=== PATIENT | female | born 1965 | race African-American/Black ===

== ENCOUNTER 2022-10-26 06:24 | Emergency (ER) | payer MEDICAID ==
[~2022-10-26] VITALS: Ht 177.8 cm; Wt 82.0 kg
[2022-10-26] MEDS ORDERED: ONDANSETRON HCL 4MG/2ML INJ IV STA (06:44)
[2022-10-26] MEDS ORDERED: SODIUM CHLORIDE 0.9% 1,000 ML IV ONE (06:45)
[2022-10-26 08:00] VITALS: BP 144/85
[2022-10-26 08:01] LABS: CHLORIDE 109 mEq/L (98-107)
[2022-10-26 08:02] LABS: BASOPHILS % 0.8 % (0.0-2.0); HEMOGLOBIN. 12.8 g/dL (12.0-16.0); LYMPHOCYTES % 25.8 % (20.0-50.0); MEAN CORPUSCULAR VOLUME 80.7 fL (81.0-99.0); MEAN PLATELET VOLUME 8.1 fl (7.4-10.4); MONOCYTES % 7.5 % (2.0-8.0); NEUTROPHILS % 63.9 % (40.0-76.0); PLATELET 255 x1000/uL (130-400); RED BLOOD CELL COUNT 4.59 mill/uL (4.2-5.4)
[2022-10-26] MEDS ORDERED: ONDA4TAB50 PO (09:26)
== END 2022-10-26 09:59 | disposition home or self-care (01) ==
LOC: ER 06:24
DX: R42 Dizziness and giddiness (principal); R03.0 Elevated blood-pressure reading, without diagnosis of hypertension; I44.0 Atrioventricular block, first degree
CPT/HCPCS: 36415; 71045; 80053; 83880; 84484; 85025; 93005; 96360; 96361; 99285; J7030

== ENCOUNTER 2025-10-23 08:45 | Emergency (ER) | payer MEDICAID ==
[~2025-10-23] VITALS: Ht 177.8 cm; Wt 95.0 kg
[~2025-10-23 08:45] MED LIST: ONDA4TAB50 PO
[2025-10-23 08:51] VITALS: O2SAT 100
[2025-10-23] MEDS: CLONIDINE 0.2MG TABLET PO ONE (10:10)
[2025-10-23 10:39] VITALS: TEMP 36.7
[2025-10-23] MEDS: HYDROCHLOROTHIAZIDE 25MG TABLET PO SCH (10:44)
[2025-10-23 11:29] VITALS: BP 130/90; PULSE 70; RESP 15; O2SAT 100
[2025-10-23] MEDS ORDERED: HYDR12.54 MT (11:38)
[2025-10-23] MEDS ORDERED: AMLO10TA80 MT (11:38)
== END 2025-10-23 11:54 | disposition home or self-care (01) ==
LOC: ER 08:58
DX: I16.0 Hypertensive urgency (principal); K59.00 Constipation, unspecified
CPT/HCPCS: 99285